=== PATIENT | female | born 1975 | race Caucasian/White ===

== ENCOUNTER → 2016-08-30 | Day surgery (SDC) | payer OTHER ==
[2016-08-14 14:07] VITALS: Ht 162.6 cm; Wt 76.8 kg
[~2016-08-30] VITALS: Ht 162.6 cm; Wt 76.8 kg
[~2016-08-30] MED LIST: ASTN; ATROPINE SULFATE 0.1 MG/ML 5ML SYR IV PRN; BUPIVACAINE 0.5 % 5 MG/1 ML MPF 30ML VIAL ONE; CEFAZOLIN 1000MG/55 ML D5W 55 ML IV SCH; CHOL100010 PO; DEXAMETHASONE SOD INJ 4 MG/ML VIAL ONE; EpHEDrine SULFATE INJ 50 MG/ML AMP IV PRN; FENTANYL CITRATE INJ 50 MCG/1 ML 2 ML VIAL ONE; GELATIN SPONGE SZ 100 ONE; LACTATED RINGER'S 1000ML IV SCH; LIDOCAINE HCL 2% 2 ML VIAL (20MG/ML) ONE; MIDAZOLAM HCL 1 MG/ML 2ML VIAL ONE; ONDANSETRON INJ 2 MG/ML 2 ML VIAL ONE; PROPOFOL IV EMULSION 10 MG/ML 20 ML VIAL IV ONE; SILVER SULFADIAZINE 1% CR 50 GM JAR EXT ONE; SODIUM CHLORIDE 0.9% 1000ML 1,000 ML IV SCH; TRIA1SPR4 NAE; VITBC PO
--- NOTE | 2016-08-30 07:59 | HISTORY & PHYSICAL EXAMINATION ---
DATE OF ADMISSION: 08/30/2016 HISTORY OF PRESENT ILLNESS: A 40-year-old female presents today complaining of skin being evaluated in followup for painful lesions. Lesions are unchanged with current treatment. The patient indicates these have existed for unknown duration. She has had multiple treatments with some improvement intermittently. The patient denies any recent exposure history for this condition. Lesions are the same. She notes the lesions are painful. Coincidentally, her son recently also developed a similar type of problem and is scheduled to have surgery next week possibly. She indicates that acid therapy and partial lesion excision and bleomycin have helped before. These are listed at the bottom of her chart of when they were performed, the dates, and the impression of her H\T\P that was performed in the office. She notes the pain in her foot is graded as 7 on a 10-point scale. Due to the severity of condition, she is requesting surgical intervention. PAST SURGICAL HISTORY: Uterine and foot surgery in 2013. PAST MEDICAL HISTORY: Back problems, asthma. MEDICATIONS: Astelin. ALLERGIES: No known medical allergies. FAMILY HISTORY: The patient admits to family history of arthritis, back problems, heart problems. SOCIAL HISTORY: The patient admits to alcohol use. Drinking described as social. REVIEW OF SYSTEMS: Unremarkable except chief complaint. PHYSICAL EXAMINATION: VITAL SIGNS: Height 5 feet 4, weight 164 pounds, body mass index 28, BP 124/80, temp. CONSTITUTIONAL: The patient appears well developed and nourished with good attention to body grooming and habitus. HEAD AND FACE: Head is normocephalic and atraumatic without any gross head, face, or neck masses. EYES: Conjunctival and pupillary reaction to light and accommodation are normal. EARS, NOSE, MOUTH AND THROAT: Unremarkable. NECK: Neck is supple. Trachea is midline. CARDIOVASCULAR: Normal S1, S2, without murmur, gallops, rubs. RESPIRATORY: Chest is symmetric. No scars are visible. No port or pacemaker noted. GASTROINTESTINAL: Abdominal organs, bladder and kidneys show no abnormalities, masses, tenderness or rigidity. LYMPHATIC: No popliteal, inguinal or supraclavicular lymphadenopathy noted. LOWER EXTREMITY VASCULAR EXAMINATION: DP and PT are palpable. DERMATOLOGIC: Cutaneous lesions are observed on plantar aspect of the heel which demonstrates lesions that are calloused, showing interruption of skin tension lines. Left 4th, left 5th, left 2nd and left 3rd demonstrate lesions that are calloused, showing interruption of skin tension lines. No pinpoint bleeding noted. NEUROLOGICAL: Touch, pin, vibratory and proprioception sensations are normal. Deep tendon reflexes normal. MUSCULOSKELETAL: Muscle tone is normal. Muscle strength is 5/5 in all groups tested. PIPJ contracture noted 2 through 5 bilaterally. IMPRESSION: 1. Hammertoes 2 through 5 bilaterally. 2. Benign neoplasm of skin, status post partial lesion excision of verruca and destruction of lesions with CO2 laser on 03/04/2014, status post verruca and destruction of lesions with CO2 laser 08/05/2013, status post bleomycin injection 10/22/2014, status post lesion excision of verruca and bleomycin injection 02/25/2016. PLAN: Informed the patient the etiologies of plantar verruca, offered the following treatment options: 1. Debridement and application of acid. 2. Surgical excision. 3. Cryotherapy. 4. CO2 laser vaporization. 5. Bleomycin. Reviewed procedure, risks, and complications for each treatment at length. All questions were answered. The patient is aware that no treatment in common use is 100% effective and success rate for all treatments are relatively similar. The patient elects to proceed with CO2 laser vaporization and partial lesion excision. Surgeries/procedures to be performed: 1. CO2 laser vaporization and partial lesion excision, approximately 14 lesions on the left will be performed under local with IV sedation as an outpatient at surgery center. The procedure, risks and complications were fully reviewed with the patient. Consent form and foot diagram and illustration reviewed in all their entirety. All the patient's questions were answered. Complications were discussed in detail with the patient including pain, infection, swelling that may or may not be excessive, pins and needles feeling, metatarsalgia, excessive bleeding, delay or nonhealing of skin, enlarged scar, failure of the procedure, recurrence or worsening condition that may not require further surgery, adverse reaction to anesthesia, allergic reaction to suture or other implant material, loss of toe, foot, or leg, transfer lesion or callus, peripheral neurovascular complications such as phlebitis, damage to nerves or vascular structures, severe or chronic pain, chronic nerve pain or damage, and general medical complications. The patient will be required to wear a surgery shoe for a minimum of 3-7 days and not return to dress shoes for 3 weeks depending on the postop edema, need for accommodative padding. She is aware this is an elective type procedure and I recommend a second opinion. The patient said she understood, consent form was signed with a copy of the foot diagram issued to the patient. Verbal and written postoperative instructions were given. The patient will return to the office for a postop check or sooner if medically necessary. Instructed to keep dressing clean, dry and intact until seen at the office. At time of the preoperative appointment, prescriptions for Silvadene, Keflex and acetaminophen were dispensed. ANASTASIA
--- NOTE | 2016-08-30 12:02 | Anesthesia Progress Nt - [facility] ---
Anesthesia Post Op Note Date & Time Aug 30, 2016 at 12:02 Vital Signs Pain Intensity: 0 Vital Signs Past 12 Hours Date Time Temp Pulse Resp B/P Pulse Ox O2 Delivery O2 Flow Rate FiO2 08/30/16 11:51 74 16 126/83 98 Room Air 08/30/16 11:21 66 16 127/87 100 Room Air 08/30/16 10:32 36.3 75 18 119/83 95 Room Air 08/30/16 10:26 112/88 08/30/16 10:25 61 17 98 08/30/16 10:25 61 17 08/30/16 10:22 36.4 59 20 112/88 99 Room Air 08/30/16 10:21 112/88 08/30/16 10:20 66 18 98 08/30/16 10:20 66 18 08/30/16 10:16 115/87 08/30/16 10:15 62 16 08/30/16 10:15 62 16 100 08/30/16 10:11 119/83 08/30/16 10:10 62 14 08/30/16 10:10 61 14 100 08/30/16 10:06 111/83 08/30/16 10:05 61 18 08/30/16 10:05 63 18 100 08/30/16 10:01 122/81 08/30/16 10:00 65 15 100 08/30/16 10:00 64 15 08/30/16 09:56 110/91 08/30/16 09:55 79 12 08/30/16 09:55 78 12 100 08/30/16 09:51 106/78 08/30/16 09:50 61 10 100 08/30/16 09:50 61 10 08/30/16 09:46 112/77 08/30/16 09:45 68 12 100 08/30/16 09:45 68 12 08/30/16 09:41 109/91 08/30/16 09:40 73 08/30/16 09:40 73 100 08/30/16 09:40 36.0 67 12 109/91 100 Diffusion Mask 6 08/30/16 08:29 36.7 75 16 127/77 99 Room Air Notes Mental Status: alert / awake / arousable, participated in evaluation Pt Amnestic to Procedure: Yes Nausea / Vomiting: adequately controlled Pain: adequately controlled Airway Patency, RR, SpO2: stable & adequate BP & HR: stable & adequate Hydration State: stable & adequate Anesthetic Complications: no major complications apparent
--- NOTE | 2016-08-30 12:04 | Discharge Instructions-SurgCtr ---
Discharge Instructions Date of Service Aug 30, 2016. Visit Reason for Visit: Left Foot Painful Vascular Lesion Metatarsalgia Discharge Discharge Diagnosis / Problem: same as above Discharge Goals Goal(s): Decrease discomfort Medications Restart Stopped Medication(s): Resume Previous medications unless otherwise instructed by your surgeon Activity Recommendations Activity Limitations: resume your previous activity Lifting Limitations: none Exercise/Sports Limitations: as tolerated May Resume Sexual Activity: when tolerated Shower/Bathe: keep incision dry Driving or Machine Use: resume 1 day after discharge Weightbearing Status: Left weightbearing (as tolerated in surgical shoe) Patient to be in surgical shoe and non weightbearing until postop follow up in a week in our office Anesthesia . Post Anesthesia Instructions: If you have had General Anesthesia or IV Sedation: * Do not drive today. * Resume driving when surgeon permits. * Do not make important decisions or sign legal documents today. * Call surgeon for: 1. Temperature elevations greater than 101 degrees F. 2. Uncontrollable pain. 3. Excessive bleeding. 4. Persistent nausea and vomiting. 5. Medication intolerance (nausea, vomiting or rash). * For nausea and vomiting use only clear liquids such as: tea, soda, bouillon until nausea subsides, then gradually increase diet as tolerated. * If you have any concerns or questions, call your surgeon's office. If physician is unavailable and it is an emergency, call 911 or go to the nearest emergency room. . Diet Recommendations Home Diet: resume previous diet (Resume pervious diet) Procedures Procedures Performed: Bilateral Lower Extremities CO2 Laser Vaporization And Partial Lesion Excision Pending Studies Studies pending at discharge: yes List of pending studies: Pathology Report Medical Emergencies . Who to Call and When: Medical Emergencies: If at any time you feel your situation is an emergency, please call 911 immediately. . Non-Emergent Contact Non-Emergency issues call your: Primary Care Provider Call Non-Emergent contact if: you have a fever . . "Provider Documentation" section prepared by Sandra Graf.
[2016-08-30 12:22] VITALS: BP 114/79; PULSE 74; O2SAT 96
--- NOTE | 2016-08-30 13:41 | OPERATIVE REPORT ---
DATE OF OPERATION: 08/30/2016 PREOPERATIVE DIAGNOSES: Painful vascular lesions, capital metatarsalgia and full red dots. POSTOPERATIVE DIAGNOSES: Same. PROCEDURE: CO2 laser vaporization, left foot; partial lesion excision, left foot, 1.2 x2. HEMOSTASIS: None. MATERIALS: Gelfoam. ESTIMATED BLOOD LOSS: Minimal. INJECTABLES: None. The patient tolerated the procedure and anesthesia well without complications, transported to recovery room with vital signs stable and neurovascular status intact. I attest to the content of the Intraoperative Record and any orders documented therein. Any exceptio ns are noted below.
== END | disposition home or self-care (01) ==
LOC: X.SURG 07:26
PROVIDERS: ATTEND Podiatrist Foot & Ankle Surgery
DX: L85.1 Acquired keratosis [keratoderma] palmaris et plantaris (principal); M77.41 Metatarsalgia, right foot; M77.42 Metatarsalgia, left foot; J45.909 Unspecified asthma, uncomplicated; Z88.2 Allergy status to sulfonamides